=== PATIENT | male | born 1965 | race Caucasian/White ===

== ENCOUNTER 2017-04-12 12:28 | Outpatient (CLI) | payer OTHER ==
[2017-04-12 18:56] LABS: BASOPHILS % (AUTO) 0.5 %; EOSINOPHILS # (AUTO) 0.2 10^3/uL (0.0-0.7); EOSINOPHILS % (AUTO) 2.6 %; HGB - HEMOGLOBIN 14.2 g/dL (14.0-18.0); LYMPHOCYTES # (AUTO) 1.8 10^3/uL (1.5-3.5); MEAN CORPUSCULAR HEMOGLOBIN 30.3 pg (27.0-31.0); MEAN CORPUSCULAR HGB CONC 33.1 g/dL (32.0-36.0); MEAN CORPUSCULAR VOLUME 91.7 fL (80.0-94.0); MEAN PLATELET VOLUME 9.6 fL (7.4-11.4); MONOCYTES # (AUTO) 0.5 10^3/uL (0.0-1.0); MONOCYTES % (AUTO) 8.6 %; NEUTROPHILS # (AUTO) 3.4 10^3/uL (1.5-6.6); NEUTROPHILS % (AUTO) 58.3 %; UNCORRECTED WHITE BLOOD COUNT 5.9 x10^3/uL; WHITE BLOOD COUNT 5.9 x10^3/uL (4.8-10.8)
[2017-04-12 19:18] LABS: CALCIUM 9.2 mg/dL (8.5-10.3); CREATININE 0.8 mg/dL (0.6-1.2); POTASSIUM 3.8 mmol/L (3.5-5.0)
== END 2017-04-12 12:29 | disposition home or self-care (01) ==
LOC: LAB.F 12:28
PROVIDERS: ATTEND Internal Medicine
DX: G50.1 Atypical facial pain (principal)
CPT/HCPCS: 36415; 80048; 85025; 85651; 86140

== ENCOUNTER 2019-09-09 10:06 | Emergency (ER) | payer OTHER ==
[2019-09-09 10:38] VITALS: BP 152/81
--- NOTE | 2019-09-09 11:19 | XRAY Report ---
Reason: punched a wall Procedure Date: 09/09/2019 Accession Number: [id number] / [id number] Procedure: XR - Hand 3 View RT CPT Code: Final Report FULL RESULT: EXAM: RIGHT HAND RADIOGRAPHY EXAM DATE: 09/09/2019 11:04 AM. CLINICAL HISTORY: Punched a wall. COMPARISON: None. TECHNIQUE: 4 views. FINDINGS: Bones: There is a fracture of the distal 5th metacarpal metadiaphysis with apex dorsal angulation of the distal fragment. Joints: Normal. No subluxations. Soft Tissues: Normal. No soft tissue swelling. IMPRESSION: Boxer's fracture. RADIA
--- NOTE | 2019-09-09 11:54 | ED Physician Documentation ---
History of Present Illness - Stated complaint Stated Complaint: R HAND INJ - Chief complaint Chief Complaint: Trauma Ext - Additonal information Additional information: This is a 54-year-old male presents with right hand pain after punching a wall. There is a lot of stress in his life and his father is currently dying, so he had outburst of anger last night and punched a wall and had immediate pain in his right hand. He continues to throb and ache today and the pain is moderate at rest, severe with movement. It is located primarily over the base of the pinky. He denies injury elsewhere. Review of Systems Skin: reports: Abrasion (s) Musculoskeletal: reports: Extremity pain PD PAST MEDICAL HISTORY - Past Medical History Past Medical History: No Cardiovascular: Murmur Respiratory: None Endocrine/Autoimmune: None GI: None : None Psych: Anxiety Musculoskeletal: None Derm: None - Past Surgical History Past Surgical History: Yes - Present Medications Home Medications: Ambulatory Orders Medication Instructions Recorded Confirmed Oxycodone HCl/Acetaminophen 1 each PO Q6H PRN #10 tablet 09/09/19 [Percocet 5-325 mg Tablet] - Allergies Allergies/Adverse Reactions: Allergies Allergy/AdvReac Type Severity Reaction Status Date / Time No Known Drug Allergies Allergy Verified 09/09/19 10:35 - Social History Does the pt smoke?: No Smoking Status: Never smoker Does the pt drink ETOH?: Yes ETOH Use: Beer Substance Use and Type: Marijuana - Immunizations Immunizations are current?: No PD ED PE NORMAL - General General: Alert and oriented X 3 - HEENT HEENT: Atraumatic - Cardiac Cardiac: RRR - Respiratory Respiratory: No respiratory distress - Extremities Extremities: Other (There is bruising and mild edema around pole of the right pinky. Patient is able to flex and extend at the MCP PIP and DIP. There is a slight abrasion over the knuckle of the fourth metacarpal, this is very shallow. Sensation light touch intact, cap refill is brisk.) - Neuro Neuro: Alert and oriented X 3 Results - Vitals Vitals: Oxygen O2 Source Room air - Rads (name of study) Xr hand Radiology: Other (Boxer's fracture and fifth metacarpal.) Procedures - Splint (location) Upper extremity right Splint applied by: Physician Type of splint: Fiberglass, Ulnar gutter Other: Patient tolerated well, No complications, Neurovascular intact, Other (Gentle mold applied to distal 5th metacarpal with hand in intrinsic plus position.) PD MEDICAL DECISION MAKING - ED course ED course: Pt presents with R hand pain and is found to have a closed 5th boxer's fracture. It has mild angulation, ulnar gutter splint was applied with gentle mold to improve angulation. I discussed ortho follow up, return precautions, and icing, elevation, pain control. I prescribed a small amount of percocet with instructions on safe use. Pt's questions were answered and he was discharged home in good condition. Departure - Departure Disposition: Home, Self Care Clinical Impression: Boxers fracture Qualifiers: Encounter type: initial encounter Fracture type: closed Qualified Code(s): S62.339A - Displaced fracture of neck of unspecified metacarpal bone, initial encounter for closed fracture Condition: Good Instructions: ED Fx Hand Closed Follow-Up: Bruce Caery MD [Provider Admit Priv/Credential] - (In 1 week) Prescriptions: Oxycodone HCl/Acetaminophen [Percocet 5-325 mg Tablet] 1 each PO Q6H PRN #10 tablet PRN Reason: pain Comments: You broke the base of your right pinky finger. We put you in a splint which should remain in place until you follow-up with orthopedics. Follow-up in the next week or so with orthopedics or provider comfortable managing fractures, at that time they will likely do a repeat x-ray to check the alignment and discuss further care. If you are having pain is not controlled by medications prescribed or other concerning or worsening symptoms return to the emergency department. You may try controlling your pain with Tylenol and ibuprofen alone, if these are not working then may use the Percocet. Do not drink alcohol or drive while taking narcotic pain medication. Note that many narcotic pain relievers also contain Tylenol/acetaminophen. Please ensure that your total dose of acetaminophen from all sources does not exceed 3 g (3000 mg) per day. You may get constipated while on this medication. Take a stool softener such as Colace twice a day while you are on it. Also add an mcuz-otx-rqnugau laxative such as senna or MiraLAX on any day that you do not have a bowel movement. If you received a narcotic pain medication or sedative while in the emergency department, do not drive for the next 24 hours. Discharge Date/Time: 09/09/19 12:49
== END 2019-09-09 12:49 | disposition home or self-care (01) ==
LOC: ED 10:06
DX: S62.336A Displaced fracture of neck of fifth metacarpal bone, right hand, initial encounter for closed fracture (principal); S60.511A Abrasion of right hand, initial encounter; W22.01XA Walked into wall, initial encounter
CPT/HCPCS: 29125; 99283

== ENCOUNTER 2020-07-01 09:20 | Outpatient (CLI) | payer OTHER ==
--- NOTE | 2020-07-01 10:57 | XRAY Report ---
PROCEDURE: Shoulder 3 View RT INDICATIONS: SHOULDER PAIN, RIGHT TECHNIQUE: 3 views of the shoulder were acquired. COMPARISON: None. FINDINGS: Bones: No fractures or dislocations. Mild degenerative changes of the right acromioclavicular joint. No suspicious bony lesions. Visualized ribs appear intact. Soft tissues: No suspicious soft tissue calcifications. IMPRESSION: Mild right acromioclavicular osteoarthrosis. No acute radiographic abnormalities identif ied in the right shoulder. Reviewed by: Rickie Mcfarland MD on 07/01/2020 9:56 AM [facility] Approved by: Rickie Mcfarland MD on 07/01/2020 9:56 AM [facility] Station ID: [id number]
== END 2020-07-01 09:21 | disposition home or self-care (01) ==
LOC: DI.S 09:20
PROVIDERS: ATTEND Family Medicine
DX: M19.011 Primary osteoarthritis, right shoulder (principal)

== ENCOUNTER 2021-07-20 09:39 | Outpatient (CLI) | payer OTHER ==
[2021-07-20 15:43] LABS: BASOPHILS # (AUTO) 0.1 10^3/uL (0.0-0.1); BASOPHILS % (AUTO) 1.2 %; EOSINOPHILS # (AUTO) 0.1 10^3/uL (0.0-0.7); EOSINOPHILS % (AUTO) 2.8 %; HCT - HEMATOCRIT 44.1 % (42.0-52.0); HGB - HEMOGLOBIN 14.3 g/dL (14.0-18.0); LYMPHOCYTES # (AUTO) 1.5 10^3/uL (1.5-3.5); MEAN CORPUSCULAR HEMOGLOBIN 30.3 pg (27.0-31.0); MEAN CORPUSCULAR HGB CONC 32.4 g/dL (32.0-36.0); MEAN CORPUSCULAR VOLUME 93.4 fL (80.0-94.0); MEAN PLATELET VOLUME 11.3 fL (7.4-11.4); MONOCYTES # (AUTO) 0.4 10^3/uL (0.0-1.0); MONOCYTES % (AUTO) 10.2 %; NEUTROPHILS # (AUTO) 2.2 10^3/uL (1.5-6.6); NEUTROPHILS % (AUTO) 50.6 %; PLT - PLATELET COUNT 270 10^3/uL (130-450); RED BLOOD COUNT 4.72 10^6/uL (4.70-6.10); RED CELL DISTRIBUTION WIDTH 12.7 % (12.0-15.0); WHITE BLOOD COUNT 4.3 x10^3/uL (4.8-10.8)
[2021-07-20 16:07] LABS: ALBUMIN 4.6 g/dL (3.2-5.5); ALBUMIN/GLOBULIN RATIO 1.5 (1.0-2.2); ALKALINE PHOSPHATASE 64 IU/L (42-121); ALT ALANINE AMINOTRANSFERASE 30 IU/L (10-60); AST ASPARTATE AMINOTRANSFERASE 26 IU/L (10-42); BILIRUBIN,TOTAL 0.5 mg/dL (0.2-1.0); BUN - BLOOD UREA NITROGEN 14 mg/dL (6-20); CALCIUM 9.2 mg/dL (8.5-10.3); CARBON DIOXIDE - CO2 28 mmol/L (21-32); CHLORIDE 102 mmol/L (101-111); CHOL/HDL RATIO 4.5 (<5.0); CHOLESTEROL 287 mg/dL; CREATININE 0.9 mg/dL (0.6-1.2); GFR - MDRD 87 (>89); GLUCOSE 93 mg/dL (70-100); HDL CHOLESTEROL 64 mg/dL; LDL CHOLESTEROL,CALCULATED 198 mg/dL; LDL/HDL RATIO 3.1 (<3.6); POTASSIUM 3.8 mmol/L (3.5-5.0); SODIUM 139 mmol/L (135-145); TOTAL PROTEIN 7.7 g/dL (6.7-8.2); TRIGLYCERIDES 124 mg/dL; VLDL CHOLESTEROL 25 mg/dL
== END 2021-07-20 09:40 | disposition home or self-care (01) ==
LOC: LAB.S 09:39
PROVIDERS: ATTEND Internal Medicine
DX: E78.00 Pure hypercholesterolemia, unspecified (principal); Z79.899 Other long term (current) drug therapy; Z12.5 Encounter for screening for malignant neoplasm of prostate
CPT/HCPCS: 36415; 80053; 80061; 83721; 84153; 85025

== ENCOUNTER 2022-06-15 20:27 | Emergency (ER) | payer OTHER ==
--- OUTSIDE RECORDS SUMMARY | 2022-06-15 20:39 | EXTERNAL MEDICAL SUMMARY RPT | Continuity of Care Document ---
:1965 Author Organization [facility] Address [address] [place] [address] Phone Care Team Providers Name Role Phone Unavailable Unavailable Unavailable Henry Ramirez M.D. Unavailable Unavailable Allergies No information. Encounters No information. Functional Status No information. Immunizations No information. Medications date description facility +0000 carbamazepine [facility] [place] [phone]+0000 carbamazepine [facility] [place] [id number]+0000 carbamazepine [facility] [place] [id number]+0000 carbamazepine [facility] [place] Problems No information. Procedures date description facility +0000 Visit Code Hold [facility] [place] +0000 XR FOOT COMPLETE MIN 3 VIEW [facility] [place] Results/Labs No information. Social History date description facility +0000 Never smoker [facility] [place] Vital Signs date measurement value units +0000 BMI BMI 25.10 kg/m2 [id number]+0000 BP_diastolic BP_diastolic 77 mmHg +0000 BP_systolic BP_systolic 144 mmHg [id number]+0000 heart_rate heart_rate 66 /min [id number]+0000 height_metric height_metric 184.15 cm [id number]+0000 height_standard height_standard 72.5 in [id number]+0000 respiration_rate respiration_rate 16 /min [id number]+0000 temperature_metric temperature_metric 36.11 C [id number]+0000 temperature_standard temperature_standard 9 7 F [id number]+0000 weight_metric weight_metric 84.82 kg [id number]+0000 weight_standard weight_standard 187 lb
[2022-06-15 21:14] LABS: BILIRUBIN,URINE NEGATIVE (NEGATIVE); GLUCOSE, URINE (UA) NEGATIVE (NEGATIVE); KETONES,URINE (UA) 15 mg/dL (NEGATIVE); LEUKOCYTE ESTERASE, URINE TRACE (NEGATIVE); NITRITE,URINE NEGATIVE (NEGATIVE); OCCULT BLOOD,URINE NEGATIVE (NEGATIVE); PROTEIN,URINE NEGATIVE (NEGATIVE); UROBILINOGEN,URINE 0.2 (NORMAL) E.U./dL (NORMAL)
[2022-06-15 21:18] LABS: CLARITY,URINE CLEAR (CLEAR)
[2022-06-15 21:29] LABS: BACTERIA,URINE Rare /HPF (None Seen); RBC,URINE 0-5 /HPF (0-5); SQUAMOUS EPITHELIAL CELL,UR FEW Squamous (<= Few)
[2022-06-15] MEDS ORDERED: LIDOCAINE 1% 2 ML VIAL MC ONE (21:37)
[2022-06-15] MEDS ORDERED: cefTRIAXone 1 GM VIAL IM STA (21:37)
--- NOTE | 2022-06-15 21:41 | ED Physician Documentation ---
History of Present Illness - Stated complaint Stated Complaint: MALE - Chief complaint Chief Complaint: UTI - Additonal information Additional information: 56-year-old male presents emergency department for evaluation of dysuria urgency and frequency. Symptoms began 2 days ago but today he reports body aches and fevers. No vomiting. He has never had a UTI in the past but reports that he and his did have sexual intercourse about 1 week ago. He did penetrate her rectally without the use of a condom. Review of Systems Constitutional: reports: Fever, Myalgias Eyes: reports: Reviewed and negative Throat: reports: Reviewed and negative Cardiac: reports: Reviewed and negative Respiratory: reports: Reviewed and negative GI: reports: Nausea. denies: Vomiting : reports: Dysuria, Frequency. denies: Testicular pain Skin: denies: Rash, Lesions Musculoskeletal: reports: Reviewed and negative PD PAST MEDICAL HISTORY - Past Medical History Past Medical History: Yes Cardiovascular: Murmur Respiratory: None Endocrine/Autoimmune: None GI: None : None Psych: Anxiety Musculoskeletal: None Derm: None - Past Surgical History Past Surgical History: Yes - Present Medications Home Medications: Ambulatory Orders Medication Instructions Recorded Confirmed Oxycodone HCl/Acetaminophen 1 each PO Q6H PRN #10 tablet 09/09/19 [Percocet 5-325 mg Tablet] Ciprofloxacin HCl [Cipro] 500 mg PO BID #14 tablet 06/15/22 - Allergies Allergies/Adverse Reactions: Allergies Allergy/AdvReac Type Severity Reaction Status Date / Time No Known Drug Allergies Allergy Verified 06/15/22 20:33 - Social History Does the pt smoke?: No Smoking Status: Never smoker Does the pt drink ETOH?: Yes - Immunizations Immunizations are current?: No PD ED PE NORMAL - General General: Alert and oriented X 3, No acute distress, Well developed/nourished - HEENT HEENT: Atraumatic, Moist mucous membranes - Neck Neck: Supple, no meningeal sign, No adenopathy - Cardiac Cardiac: RRR, No murmur - Respiratory Respiratory: No respiratory distress, Clear bilaterally - Male Male : [employer]ist present, Other (Unremarkable male exam. No penile scrotal tenderness. Positive cremasteric. No penile tenderness. No discharge.) - Back Back: No CVA TTP, No spinal TTP - Derm Derm: Normal color, Warm and dry Results - Vitals Vitals: Vital Signs - 24 hr 06/15/22 20:30 Temperature 37.4 C Heart Rate 101 H Respiratory 14 Rate Blood Pressure 160/87 H O2 Saturation 99 Oxygen O2 Source Room air - Labs Labs: Laboratory Tests 06/15/22 21:05 Urine Color YELLOW Urine Clarity CLEAR Urine pH 7.0 Ur Specific [place] 1.010 Urine Protein NEGATIVE Urine Glucose (UA) NEGATIVE Urine Ketones 15 H Urine Occult Blood NEGATIVE Urine Nitrite NEGATIVE Urine Bilirubin NEGATIVE Urine Urobilinogen 0.2 (NORMAL) Ur Leukocyte Esterase TRACE H Urine RBC 0-5 Urine WBC 6-10 H Ur Squamous Epith Cells FEW Squamous Urine Bacteria Rare Ur Microscopic Review INDICATED Urine Culture Comments INDICATED PD MEDICAL DECISION MAKING - ED course Complexity details: reviewed results, considered differential, d/w patient ED course: 56-year-old male presents emergency department for evaluation of 2 days dysuria urgency and frequency. He did have sexual intercourse with his about a week ago and penetrated her rectally without the use of a condom. His urine suggests a mild infection but given the male gender and the symptoms would be appropriate at this juncture to treat for acute cystitis. Patient was given injection of ceftriaxone here in the ER and will be discharged with prescription for Cipro as well as better prostate penetration. I have lower suspicion for a sending infection despite the patient's lack of fev ers as no abdominal pain was elicited and there was no flank tenderness. Emergent return precautions were discussed for worsening symptoms Departure - Departure Disposition: 01 Home, Self Care Clinical Impression: Acute cystitis Qualifiers: Hematuria presence: without hematuria Qualified Code(s): N30.00 - Acute cystitis without hematuria Condition: Stable Record reviewed to determine appropriate education?: Yes Instructions: ED Infec Bladder Cystitis Male Prescriptions: Ciprofloxacin HCl [Cipro] 500 mg PO BID #14 tablet Comments: Mal you came to the emergency department because you have been having some body aches, fevers today and painful urination. It looks like you do have a urinary tract infection. I have sent a prescription for an antibiotic called ciprofloxacin to [facility] in [place]. Take this twice daily for the next 7 days. Your first dose of antibiotic was given tonight as an injection here in the ER. With the antibiotics I would expect improved symptoms over the next 48 to 72 hours. If not improving, you develop fevers, have uncontrolled abdominal pain or vomiting we needed have you return more emergently to the ER.
[2022-06-15 21:50] VITALS: BP 159/75
[2022-06-16 00:20] LABS: CHLAMYDIA TRACHOMATIS DNA NEGATIVE (NEGATIVE); NEISSERIA GONORRHOEAE DNA NEGATIVE (NEGATIVE)
== END 2022-06-15 21:49 | disposition home or self-care (01) ==
LOC: ED 20:27
DX: N30.00 Acute cystitis without hematuria (principal)
CPT/HCPCS: 81001; 81003; 87086; 87491; 87591; 87661; 96372; 99282; 99283

== ENCOUNTER 2022-09-01 09:09 | Outpatient (CLI) | payer OTHER ==
[2022-09-01 14:27] LABS: BASOPHILS % (AUTO) 0.6 %; EOSINOPHILS # (AUTO) 0.1 10^3/uL (0.0-0.7); EOSINOPHILS % (AUTO) 2.8 %; HCT - HEMATOCRIT 41.9 % (42.0-52.0); HGB - HEMOGLOBIN 13.7 g/dL (14.0-18.0); LYMPHOCYTES # (AUTO) 2.4 10^3/uL (1.5-3.5); LYMPHOCYTES % (AUTO) 48.2 %; MEAN CORPUSCULAR HEMOGLOBIN 29.8 pg (27.0-31.0); MEAN CORPUSCULAR HGB CONC 32.7 g/dL (32.0-36.0); MEAN CORPUSCULAR VOLUME 91.3 fL (80.0-94.0); MEAN PLATELET VOLUME 10.5 fL (7.4-11.4); MONOCYTES # (AUTO) 0.5 10^3/uL (0.0-1.0); MONOCYTES % (AUTO) 9.6 %; NEUTROPHILS # (AUTO) 1.9 10^3/uL (1.5-6.6); NEUTROPHILS % (AUTO) 38.6 %; PLT - PLATELET COUNT 341 10^3/uL (130-450); RED BLOOD COUNT 4.59 10^6/uL (4.70-6.10); RED CELL DISTRIBUTION WIDTH 12.4 % (12.0-15.0); WHITE BLOOD COUNT 4.9 x10^3/uL (4.8-10.8)
[2022-09-01 15:26] LABS: ALBUMIN 4.1 g/dL (3.2-5.5); ALBUMIN/GLOBULIN RATIO 1.2 (1.0-2.2); ALKALINE PHOSPHATASE 65 IU/L (42-121); ALT ALANINE AMINOTRANSFERASE 36 IU/L (10-60); AST ASPARTATE AMINOTRANSFERASE 27 IU/L (10-42); BILIRUBIN,TOTAL 0.6 mg/dL (0.2-1.0); BUN - BLOOD UREA NITROGEN 11 mg/dL (6-20); CALCIUM 9.2 mg/dL (8.5-10.3); CARBON DIOXIDE - CO2 27 mmol/L (21-32); CHLORIDE 103 mmol/L (101-111); CHOL/HDL RATIO 5.1 (<5.0); CHOLESTEROL 270 mg/dL; CREATININE 0.8 mg/dL (0.6-1.2); GFR - MDRD 99 (>89); GLUCOSE 89 mg/dL (70-100); HDL CHOLESTEROL 53 mg/dL; LDL CHOLESTEROL,CALCULATED 194 mg/dL; LDL/HDL RATIO 3.7 (<3.6); SODIUM 139 mmol/L (135-145); TOTAL PROTEIN 7.5 g/dL (6.7-8.2); TRIGLYCERIDES 116 mg/dL; VLDL CHOLESTEROL 23 mg/dL
[2022-09-01 15:34] LABS: THYROID STIMULATING HORMONE 5.56 uIU/mL (0.34-5.60)
== END 2022-09-01 09:10 | disposition home or self-care (01) ==
LOC: LAB.S 09:09
PROVIDERS: ATTEND Registered Nurse
DX: E78.5 Hyperlipidemia, unspecified (principal); Z12.5 Encounter for screening for malignant neoplasm of prostate; Z79.899 Other long term (current) drug therapy; Z13.29 Encounter for screening for other suspected endocrine disorder
CPT/HCPCS: 36415; 80053; 80061; 83721; 84153; 84443; 85025